=== PATIENT | female | born 1965 | race Caucasian/White ===

== ENCOUNTER → 2021-02-03 | Outpatient (CLI) | payer BC ==
[~2021-02-03] MED LIST: NORCO 5-325 TA1 EACH PO
== END ==
LOC: KOH-I 08:48
DX: S82.831A Other fracture of upper and lower end of right fibula, initial encounter for closed fracture (principal); M77.31 Calcaneal spur, right foot
CPT/HCPCS: 73610

== ENCOUNTER → 2021-03-10 | Outpatient (CLI) | payer BC | LOC: KOH-I 08:41 | DX: S82.831D Other fracture of upper and lower end of right fibula, subsequent encounter for closed fracture with routine healing (principal) | CPT/HCPCS: 73610 ==

== ENCOUNTER → 2021-04-08 | Outpatient (CLI) | payer BC ==
[~2021-04-08] MED LIST changes: +AROMASIN25 MG PO; +CALCIUM CARBON600 M1 PO; +LEVOFLOXACIN500 MG PO; +PROTONIX40 MG PO; +VITAMIN D21250 MCG PO
== END ==
LOC: KOH-I 09:31
DX: S82.401A Unspecified fracture of shaft of right fibula, initial encounter for closed fracture (principal); S82.831D Other fracture of upper and lower end of right fibula, subsequent encounter for closed fracture with routine healing
CPT/HCPCS: 73610

== ENCOUNTER 2021-05-08 13:11 | Inpatient (IN) | payer BC ==
[~2021-05-08] VITALS: Ht 152.4 cm; Wt 89.1 kg
[~2021-05-08 13:11] MED LIST changes: -AROMASIN25 MG PO; -CALCIUM CARBON600 M1 PO; -LEVOFLOXACIN500 MG PO; -PROTONIX40 MG PO; -VITAMIN D21250 MCG PO
[2021-05-08 14:02] LABS: HEMOGLOBIN 14.3 gm/dl (12.3-15.3); RED BLOOD COUNT 4.67 M/UL (4.00-5.10); WHITE BLOOD COUNT 7.7 K/UL (4.5-11.0)
[2021-05-08 14:33] LABS: BUN/CREATININE RATIO 18 (0-10)
[2021-05-09 04:10] LABS: HEMOGLOBIN 13.2 gm/dl (12.3-15.3); RED BLOOD COUNT 4.32 M/UL (4.00-5.10); WHITE BLOOD COUNT 7.8 K/UL (4.5-11.0)
[2021-05-09 05:08] LABS: BUN/CREATININE RATIO 24 (0-10)
[2021-05-10] MEDS ORDERED: AROMASIN25 MG PO (02:01)
[2021-05-10] MEDS ORDERED: VITAMIN D21250 MCG PO (02:03)
[2021-05-10] MEDS ORDERED: CALCIUM CARBON600 M1 PO (02:13)
[2021-05-10 03:39] LABS: HEMOGLOBIN 11.9 gm/dl (12.3-15.3); RED BLOOD COUNT 4.13 M/UL (4.00-5.10)
[2021-05-10 03:42] LABS: WHITE BLOOD COUNT 13.2 K/UL (4.5-11.0)
[2021-05-10 03:58] LABS: BUN/CREATININE RATIO 29 (0-10)
[2021-05-11 08:03] LABS: HEMOGLOBIN 11.4 gm/dl (12.3-15.3); RED BLOOD COUNT 3.94 M/UL (4.00-5.10); WHITE BLOOD COUNT 11.9 K/UL (4.5-11.0)
[2021-05-11 08:28] LABS: BUN/CREATININE RATIO 35 (0-10)
[2021-05-12 07:01] LABS: HEMOGLOBIN 11.3 gm/dl (12.3-15.3); RED BLOOD COUNT 3.93 M/UL (4.00-5.10); WHITE BLOOD COUNT 10.3 K/UL (4.5-11.0)
[2021-05-12 07:17] LABS: BUN/CREATININE RATIO 27 (0-10)
[2021-05-12] MEDS ORDERED: LEVOFLOXACIN500 MG PO (10:30)
[2021-05-12] MEDS ORDERED: PROTONIX40 MG PO (10:30)
[2021-05-28] MEDS ORDERED: AROMASIN25 MG PO (06:50)
== END 2021-05-12 13:31 | disposition home or self-care (01) | DRG 177 ==
LOC: ER1 13:11 → CDU 20:20 → MED SURG 4 05-10 00:59 → CDU 05-10 00:59 → M/S 05-11 18:26 → MED SURG 4 05-11 18:26 → M/S 05-12 13:31
PROVIDERS: Internal Medicine; Physician Assistant; ADMIT Internal Medicine
PROC: XW033E5 Introduction of Remdesivir Anti-infective into Peripheral Vein, Percutaneous Approach, New Technology Group 5 (ICD-10-PCS; principal; 2021-05-08)
PROC: 3E03329 Introduction of Other Anti-infective into Peripheral Vein, Percutaneous Approach (ICD-10-PCS; 2021-05-08)
PROC: 8E0ZXY6 Isolation (ICD-10-PCS; 2021-05-08)
DX: U07.1 COVID-19 (principal); K85.90 Acute pancreatitis without necrosis or infection, unspecified; J12.82 Pneumonia due to coronavirus disease 2019; N39.0 Urinary tract infection, site not specified; B96.20 Unspecified Escherichia coli [E. coli] as the cause of diseases classified elsewhere; K29.80 Duodenitis without bleeding; E83.39 Other disorders of phosphorus metabolism; E83.42 Hypomagnesemia; Z88.1 Allergy status to other antibiotic agents; Z85.3 Personal history of malignant neoplasm of breast; Z90.49 Acquired absence of other specified parts of digestive tract
CPT/HCPCS: 36415; 71045; 80053; 80061; 81001; 82150; 82550; 83540; 83550; 83605; 83690; 83735; 84100; 85025; 85027; 86140; 87040; 87077; 87086; 87186; 93005; 96374; 96375; 99285; C9113; G0378; J0456; J0696; J1100; J1650; J2270; J2405; J7030; Q9967; U0002

== ENCOUNTER → 2021-05-28 | Day surgery (SDC) | payer BC ==
[~2021-05-28] MED LIST changes: +AROMASIN25 MG PO; +CALCIUM CARBON600 M1 PO; +LEVOFLOXACIN500 MG PO; +PROTONIX40 MG PO; +VITAMIN D21250 MCG PO
== END | disposition home or self-care (01) ==
LOC: OR 06:16
DX: K29.50 Unspecified chronic gastritis without bleeding (principal); K29.80 Duodenitis without bleeding; K31.7 Polyp of stomach and duodenum; K64.1 Second degree hemorrhoids; Z68.31 Body mass index [BMI] 31.0-31.9, adult; Z79.899 Other long term (current) drug therapy; Z88.1 Allergy status to other antibiotic agents; Z20.822 Contact with and (suspected) exposure to COVID-19; Z85.3 Personal history of malignant neoplasm of breast; Z90.49 Acquired absence of other specified parts of digestive tract
CPT/HCPCS: J7040

== ENCOUNTER → 2021-12-24 | Outpatient (CLI) | payer BC | LOC: RAD 17:48 | DX: K59.09 Other constipation (principal); M81.0 Age-related osteoporosis without current pathological fracture; R14.3 Flatulence | CPT/HCPCS: 74018 ==

== ENCOUNTER → 2022-05-25 | Outpatient (CLI) | payer BC | LOC: US 09:11 | DX: M79.604 Pain in right leg (principal); M79.605 Pain in left leg | CPT/HCPCS: 93925 ==